=== PATIENT | male | born 2000 | race Caucasian/White ===

== ENCOUNTER 2020-05-14 06:32 | Inpatient (IN) | payer MEDICAID, OTHER ==
[~2020-05-14] VITALS: Ht 185.4 cm; Wt 56.8 kg
[2020-05-14] MEDS ORDERED: LORazepam 2 MG/ML, 1ML ONE ×2 (06:41→07:46)
--- NOTE | 2020-05-14 06:49 | NUR ---
REPORT FROM RUBEN, ASSUME CARE OF PT AT THIS TIME.
[2020-05-14] MEDS ORDERED: SODIUM CHLORIDE 0.9% 1,000 ML IV ONE (07:00)
[2020-05-14] MEDS ORDERED: LORazepam 2 MG/ML, 1ML IV ONE (07:00)
--- NOTE | 2020-05-14 07:00 | NUR ---
PT RESTLESS/AGITATED, CALLING OUT FOR PEOPLE NOT IN ROOM. [employer] AT BS. PT IN 4 POINT LEATHER RESTRAINTS. RESTRAINT ORDER AND MONITORING SHEET STARTED. NOTED EXTENSIVE ABRASIONS TO BLE AND REPORTED BY [employer] THAT OCCURRED DURING ARREST/TAKE DOWN. BLOOD AT LIPS WELL, UNKNOWN IF ORAL TRAUMA OCCURRED AT TIME OF ARREST. PT STATES HE TOOK 4 OR 5 ADDERALL 20 MG AND SOME XANAX. PT WILL ANSWER SOME QUESTIONS BUT INTERMITTENT WITH CONFUSION AND AGITATION. PT DENIES OTHER DRUG USE.
[2020-05-14] MEDS ORDERED: HALOPERIDOL 5 MG/ML ONE (07:21)
[2020-05-14 07:24] LABS: ALBUMIN 4.4 g/dL (3.4-5.0); ANION GAP 11 mmol/L (5-15); CALCIUM 8.9 mg/dL (8.5-10.1); CHLORIDE 110 mmol/L (98-107)
[2020-05-14 07:25] LABS: MEAN CORPUSCULAR HEMOGLOBIN 33.1 pg (27.5-34.5); MEAN PLATELET VOLUME 8.8 fL (7.4-10.4); PLATELET COUNT 268 x10^3/uL (130-400); RED BLOOD COUNT 4.53 x10^6/uL (4.38-5.82); RED CELL DISTRIBUTION WIDTH 12.4 % (9.4-14.8); SALICYLATE LEVEL < 1.7 mg/dL (2.8-20.0)
[2020-05-14] MEDS ORDERED: HALOPERIDOL 5 MG/ML IM ONE (07:30)
[2020-05-14 07:33] LABS: BILIRUBIN,TOTAL 0.5 mg/dL (0.2-1.0); CREATININE 1.21 mg/dL (0.7-1.3)
[2020-05-14 07:34] LABS: ALANINE AMINOTRANSFERASE 31 U/L (12-78); ALKALINE PHOSPHATASE 66 U/L (45-117); CREATINE KINASE, TOTAL 634 U/L (39-308); TOTAL PROTEIN 7.5 g/dL (6.4-8.2)
--- NOTE | 2020-05-14 07:50 | NUR ---
PT ON HEART MONITOR, PULSE OX. ST ON MONITOR 150S. [address]. PT ABLE TO ANSWER SOME QUESTIONS BUT YELLING OUT INAPPROPRIATELY AT TIMES, CALLING FOR GRANDMA AND OTHER PEOPLE NOT PRESENT. [employer] AT BS. ERP NOTIFIED OF HR AND PT CONDITION. ERP IN TO REASSESS. SITTER REMAINS AT BS. WATER PROVIDED BY ERP.
[2020-05-14 07:54] LABS: MD YES
[2020-05-14 07:56] LABS: BAND#(MANUAL) 3.45 x10^3/uL; BANDS%(MANUAL) 11 % (0-7); MONOS#(MANUAL) 1.88 x10^3/uL (0.3-2.7); MONOS% (MANUAL) 6 % (2-9)
[2020-05-14 07:57] LABS: ANISOCYTOSIS 1+; LYMPH#(MANUAL) 1.26 x10^3/uL (1-3.4); LYMPHS% (MANUAL) 4 % (22-44); SEG#(MANUAL) 24.81 x10^3/uL (1.8-6.8); SEGS% (MANUAL) 79 % (42-75)
[2020-05-14 07:58] LABS: <PLATELET ESTIMATE> ADEQUATE; <PLT MORPHOLOGY> NORMAL PLT MORPH
[2020-05-14] MEDS ORDERED: LORazepam 2 MG/ML, 1ML IVPush ONE (08:00)
--- NOTE | 2020-05-14 08:05 | NUR ---
PT MOVED TO TRAUMA, ASSUMING CARE OF PT AT THIS TIME.
--- NOTE | 2020-05-14 08:13 | NUR ---
0814 20MG ETOMIDATE GIVEN BY NICK MAE, HARD RESTRAINT SWITCHED TO SOFT RESTRAINTS FOR INTUNATION 0815 100MG SUCCINYLCHOLINE 0816 INTUBATED BY JOSE GARNETT STUDENT UNDER SUPERVISION OF DR.COLEY Arevalo 100MG PROPOFOL 8FR 55CM AT THE LIP Addendum: 05/14/20 at 1013 by [email or web address] 0814 20MG ETOMIDATE GIVEN BY NICK MAE, HARD RESTRAINT SWITCHED TO SOFT RESTRAINTS FOR INTUBATION 0815 100MG SUCCINYLCHOLINE 0816 INTUBATED BY JOSE GARNETT STUDENT UNDER SUPERVISION OF DR.COLEY Arevalo 100MG PROPOFOL 8FR 25CM AT THE [facility]
--- NOTE | 2020-05-14 08:14 | NUR ---
VENT SETTINGS: TIDAL VOLUME 450 PEEP: 5 FIO2: 80% RATE: 16
[2020-05-14] MEDS ORDERED: LACTATED RINGERS 1,000 ML IV ONE (08:30)
[2020-05-14] MEDS ORDERED: SUCCINYLCHOLINE 20 MG/ML, 10ML IV ONE (08:30)
[2020-05-14] MEDS ORDERED: MIDAZOLAM 1 MG/ML, 5ML IVPush ONE (08:30)
[2020-05-14] MEDS ORDERED: PROPOFOL 10 MG/ML, 20ML IVPush ONE (08:30)
[2020-05-14] MEDS ORDERED: ETOMIDATE 20 MG/10 ML IV ONE (08:30)
[2020-05-14] MEDS ORDERED: PROPOFOL 100 ML IV SCH (08:30)
--- NOTE | 2020-05-14 08:40 | NUR ---
14F NG TUBE INSERTED
--- NOTE | 2020-05-14 08:50 | NUR ---
LATE ENTRY: REPORT FROM WARNER MAE. THIS IS A 20 YO M BIB [employer] FOR AMS. [employer] REPORTED THAT PT WAS TRYING TO RUN AWAY DURING ARREST AND WAS TACKLED TO GROUND. PT REPORTED TAKING 120 MG ADDERALL AND "A FEW XANAX". PT WAS AGIATED AND CONFUSED. PER WARNER RN WAS ANSWERING QUESTIONS APPROPRIATELY BUT WAS ALSO HALLUCINATING. NO RELIEF W/ ATIVAN AND HALDOL GIVEN HERE. UNKNOWN HISTORY. PER WARNER MAE, PT IS STILL IN CUSTODY AND [employer] WOULD LIKE A CALL UPON DC. PT RECEIVED TOTAL OF 1500ML NS BOLUS HERE.
--- NOTE | 2020-05-14 08:59 | NUR ---
PTS [facility] [phone] LISTED EMERGENCY CONTACT IN PTS PHONE.
[2020-05-14] MEDS ORDERED: VECURONIUM 10 MG IVPush ONE (09:00)
--- NOTE | 2020-05-14 09:15 | NUR ---
NG TUBE ADVANCED OER RAD RECOMMENDATION.
[2020-05-14] MEDS ORDERED: NEOSPORIN OINT. PKT 1 PACKET ONE (09:18)
--- NOTE | 2020-05-14 09:22 | NUR ---
REPORT GIVEN TO MENDOZA MAE. PT IS READY FOR TRANSPORT AT THIS TIME. EUGENE, ANDRZEJ. RESP AT BEDSIDE. WILL TRANSPORT TO CT THEN CCU.
[2020-05-14 09:26] LABS: MICROSCOPIC INDICATED
[2020-05-14] MEDS ORDERED: POLYETHYLENE GLYCOL 17 GM PACKET PO PRN (09:30)
[2020-05-14] MEDS ORDERED: ONDANSETRON 2MG/ML, 2ML IVPush PRN (09:30)
[2020-05-14] MEDS ORDERED: morphine SULFATE 10 MG/ML, 1ML IVPush PRN (09:30)
[2020-05-14] MEDS ORDERED: LORazepam 2 MG/ML, 1ML IVPush PRN (09:30)
[2020-05-14] MEDS ORDERED: BISACODYL 10 MG SUPP PR PRN (09:30)
[2020-05-14] MEDS ORDERED: ENALAPRILAT 1.25 MG/ML, 2ML IVPush PRN (09:30)
[2020-05-14] MEDS ORDERED: hydrALAzine 20 MG/ML, 1ML IVPush PRN (09:30)
[2020-05-14 09:36] LABS: AMPHETAMINE SCREEN, URINE Negative (Negative); BARBITURATE SCREEN, URINE Negative (Negative); BENZODIAZEPINE SCREEN, URINE Positive (Negative); CANNABINOID SCREEN, URINE Positive (Negative); COCAINE SCREEN, URINE Negative (Negative); METHADONE SCREEN, URINE Negative (Negative); OPIATE SCREEN, URINE Negative (Negative)
--- NOTE | 2020-05-14 09:43 | NUR ---
PT TRANSPROTED TO CCU W/O INCIDENT. TITRATED PROPOFOL UP TO 35MCG/KG/MIN.
[2020-05-14] MEDS ORDERED: FENTANYL PF 100 MCG/2ML IVPush PRN (10:00)
[2020-05-14] MEDS ORDERED: PROPOFOL 100 ML IV PRN (10:00)
[2020-05-14] MEDS ORDERED: LIDOCAINE-MPF 1%, 2ML ENDO PRN (10:00)
[2020-05-14] MEDS ORDERED: PHARMACY MAY ADJ FOR RENAL FX MC SCH (10:00)
[2020-05-14] MEDS ORDERED: MIDAZOLAM HCL 50 MG in SODIUM CHLORIDE 0.9% 40 ML IV PRN (10:00)
[2020-05-14] MEDS: SODIUM CHLORIDE 0.9% 1,000 ML IV SCH ×2 (10:17→18:45)
[2020-05-14] MEDS: ENOXAPARIN 40 MG/0.4 ML SQ SCH (10:17)
[2020-05-14] MEDS ORDERED: MIDAZOLAM 1 MG/ML, 5ML ONE (10:20)
[2020-05-14] MEDS ORDERED: SUCCINYLCHOLINE 20 MG/ML, 10ML ONE (10:20)
[2020-05-14] MEDS ORDERED: ETOMIDATE 20 MG/10 ML ONE (10:20)
[2020-05-14] MEDS ORDERED: VECURONIUM 10 MG ONE (10:20)
[2020-05-14] MEDS ORDERED: PROPOFOL 10 MG/ML, 20ML ONE (10:20)
[2020-05-14] MEDS ORDERED: PROPOFOL 10 MG/ML, 100ML IV ONE (10:20)
[2020-05-14] MEDS ORDERED: FAMOTIDINE 20 MG/2 ML IVPush SCH (21:00)
[2020-05-14] MEDS ORDERED: DEXMEDETOMIDINE 400 MCG in SODIUM CHLORIDE 0.9% 96 ML IV PRN (22:00)
[2020-05-15 01:24] VITALS: BP 91/53
[2020-05-15] MEDS: SODIUM CHLORIDE 0.9% 1,000 ML IV SCH (04:04)
[2020-05-15 04:50] LABS: O2 FLOW ROOM AIR L/min
[2020-05-15 04:57] LABS: BASOPHILS % (AUTO) 1 % (0-1); EOSINOPHILS % (AUTO) 0 % (1-7); LYMPHOCYTES % (AUTO) 13 % (22-44); MEAN CORPUSCULAR HEMOGLOBIN 33.7 pg (27.5-34.5); MEAN CORPUSCULAR HGB CONC 35.1 g/dL (33.2-36.2); MEAN PLATELET VOLUME 9.1 fL (7.4-10.4); MONOCYTES % (AUTO) 9 % (2-9); NEUTROPHILS % (AUTO) 78 % (42-75); PLATELET COUNT 162 x10^3/uL (130-400); RED BLOOD COUNT 3.84 x10^6/uL (4.38-5.82); RED CELL DISTRIBUTION WIDTH 12.6 % (9.4-14.8)
[2020-05-15 05:13] LABS: ALBUMIN 3.4 g/dL (3.4-5.0); CHLORIDE 116 mmol/L (98-107)
[2020-05-15 05:19] LABS: MD NO
[2020-05-15 05:30] LABS: ALANINE AMINOTRANSFERASE 36 U/L (12-78); ALKALINE PHOSPHATASE 52 U/L (45-117); ANION GAP 8 mmol/L (5-15); BILIRUBIN,TOTAL 0.9 mg/dL (0.2-1.0); CALCIUM 7.8 mg/dL (8.5-10.1); CREATINE KINASE, TOTAL 1609 U/L (39-308); CREATININE 0.67 mg/dL (0.7-1.3); TOTAL PROTEIN 5.7 g/dL (6.4-8.2)
[2020-05-15] MEDS ORDERED: POTASSIUM CHLORIDE 20 MEQ TAB.ER.PRT PO ONE (07:00)
[2020-05-15] MEDS: SENNA/DOCUSATE TABLET PO SCH (09:00)
[2020-05-15] MEDS: ENOXAPARIN 40 MG/0.4 ML SQ SCH (09:13)
[2020-05-16] MEDS: SENNA/DOCUSATE TABLET PO SCH (07:37)
== END 2020-05-16 09:50 | DRG 208 ==
LOC: ED 08:20 → EDIP 09:08 → CCU 09:39
PROVIDERS: ADMIT Internal Medicine; ATTEND Internal Medicine
PROC: 0BH17EZ Insertion of Endotracheal Airway into Trachea, Via Natural or Artificial Opening (ICD-10-PCS; principal; 2020-05-14)
PROC: 5A1935Z Respiratory Ventilation, Less than 24 Consecutive Hours (ICD-10-PCS; 2020-05-14)
DX: J96.01 Acute respiratory failure with hypoxia (principal); G92 Toxic encephalopathy; M62.82 Rhabdomyolysis; R65.10 Systemic inflammatory response syndrome (SIRS) of non-infectious origin without acute organ dysfunction; Z99.11 Dependence on respirator [ventilator] status; S80.211A Abrasion, right knee, initial encounter; S80.212A Abrasion, left knee, initial encounter; F41.9 Anxiety disorder, unspecified; R94.31 Abnormal electrocardiogram [ECG] [EKG]; D72.825 Bandemia; F17.200 Nicotine dependence, unspecified, uncomplicated; G43.909 Migraine, unspecified, not intractable, without status migrainosus; X58.XXXA Exposure to other specified factors, initial encounter; Y93.89 Activity, other specified; Y92.89 Other specified places as the place of occurrence of the external cause; Y99.8 Other external cause status; Z88.8 Allergy status to other drugs, medicaments and biological substances; Z78.1 Physical restraint status
CPT/HCPCS: 31500; 36415; 36600; 70450; 71045; 80053; 80074; 80299; 80307; 80320; 80329; 81001; 82550; 82803; 83605; 83735; 84100; 84443; 84478; 85025; 87040; 87070; 87081; 87205; 87806; 93005; 94002; 96360; 96372; G0378; J1650; J2250; J2704; G0475; G0480; J0330; J1630; J2060; J7030; J7120

== ENCOUNTER 2020-11-05 19:55 | Emergency (ER) | payer OTHER ==
[~2020-11-05] VITALS: Ht 170.2 cm; Wt 64.9 kg
--- NOTE | 2020-11-05 20:13 | NUR ---
YASMANI MERINO PA AT BEDSIDE, PT WOUND ASSESSMENT REVIEWED AND ORDERS REC'D.
[2020-11-05] MEDS ORDERED: LIDOCAINE-MPF 1%, 5ML ONE (20:15)
[2020-11-05] MEDS ORDERED: LIDOCAINE-MPF 1%, 5ML INFIL ONE (20:30)
--- NOTE | 2020-11-05 21:05 | NUR ---
SBAR RPT TO TU HANNON
[2020-11-05] MEDS ORDERED: BACITRACIN ZINC OINT 500U/GM, 0.9 GM ONE (21:07)
[2020-11-05 21:42] VITALS: BP 126/72
--- NOTE | 2020-11-05 21:43 | NUR ---
THIS RN APPLIED BACITRACIN TO PTS WOUND AND THEN APPLIED NON WOVEN GAUZE AND THEN WRAPPED WITH COBAN
== END 2020-11-05 21:44 | disposition home or self-care (01) ==
LOC: ED 20:00
DX: S61.411A Laceration without foreign body of right hand, initial encounter (principal); Z72.9 Problem related to lifestyle, unspecified; W25.XXXA Contact with sharp glass, initial encounter; Y93.89 Activity, other specified; Y92.89 Other specified places as the place of occurrence of the external cause; Y99.8 Other external cause status
CPT/HCPCS: 12002; 99283

== ENCOUNTER 2020-11-14 14:46 | Emergency (ER) | payer OTHER ==
[~2020-11-14] VITALS: Ht 175.3 cm; Wt 65.0 kg
[2020-11-14 14:53] VITALS: BP 120/80
== END 2020-11-14 15:56 | disposition home or self-care (01) ==
LOC: ED 15:00
DX: S61.411D Laceration without foreign body of right hand, subsequent encounter (principal); X58.XXXD Exposure to other specified factors, subsequent encounter
CPT/HCPCS: 99282